=== PATIENT | male | born 2000 | race Caucasian/White ===

== ENCOUNTER 2022-04-25 19:16 | Emergency (ER) | payer MEDICAID, OTHER ==
[~2022-04-25] VITALS: Ht 185.4 cm; Wt 123.0 kg
[2022-04-25] MEDS ORDERED: OFLO5DRO4 LEFT EAR (22:24)
[2022-04-25] MEDS ORDERED: AMOX-494 MT (22:24)
[2022-04-25 22:30] VITALS: BP 154/90
== END 2022-04-25 22:32 | disposition home or self-care (01) ==
LOC: ER 19:16
DX: H66.92 Otitis media, unspecified, left ear (principal); H60.92 Unspecified otitis externa, left ear
CPT/HCPCS: 99283